=== PATIENT | female | born 1995 | race Two or more races ===

== ENCOUNTER 2023-01-29 20:08 | Inpatient (IN) ==
[2023-01-29] MEDS ORDERED: LIDOCAINE 1% LOCAL 20 ML VIAL INFIL PRN (20:48)
[2023-01-29] MEDS ORDERED: OXYTOCIN 30 UNITS/500 ML BAG IV PRN (20:48)
[2023-01-29] MEDS ORDERED: fentaNYL citrate PF 100 MCG/2 ML VIAL ONE (20:55)
[2023-01-29] MEDS ORDERED: SODIUM CHLORIDE 0.9% PF INJ 10 ML VIAL ONE (20:55)
[2023-01-29] MEDS ORDERED: ePHEDrine sulfate 50 MG/ML AMP ONE (20:55)
[2023-01-29] MEDS ORDERED: fentaNYL 2MCG/ML ROPIVACAINE 1.25MG/ML 100 ML BAG EPI ONE (20:56)
[2023-01-29] MEDS ORDERED: BUPIVACAINE 0.25% PF 30 ML VIAL ONE (20:56)
[2023-01-29] MEDS ORDERED: LIDOCAINE 2%/EPINEPHRINE 1:200,000 20 ML PF ONE (20:56)
[2023-01-29] MEDS: LACTATED RINGER'S 1,000 ML IV PRN ×2 (21:05→22:39)
[2023-01-29 21:46] LABS: Hemoglobin 13.4 g/dl (12.0-16.0); Mean Corpuscular Hemoglobin 30.7 pg (25.0-34.0); Mean Corpuscular Hgb Conc 35.3 g/dL (32.0-36.0); Mean Corpuscular Volume 87.2 fL (80.0-100.0); Mean Platelet Volume 11.3 fL (9.4-12.4); Platelet Count 235 K/uL (130-400); RDW Coefficient of Variation 12.4 % (11.5-14.5); RDW Standard Deviation 40.1 fL (36.4-46.3); Red Blood Count 4.36 M/uL (4.20-5.40); White Blood Count 9.09 K/ul (4.8-10.8)
[2023-01-29] MEDS ORDERED: NALOXONE HCL 0.4 MG/1 ML VIAL/CARP IV PRN (21:51)
[2023-01-29] MEDS ORDERED: fentaNYL 2MCG/ML ROPIVACAINE 1.25MG/ML 100 ML BAG EPI PRN (21:51)
[2023-01-29] MEDS ORDERED: diphenhydrAMINE 50 MG/ML VIAL IV PRN (21:51)
[2023-01-29] MEDS ORDERED: ONDANSETRON INJ 2 MG/ML 2 ML VIAL IV PRN (21:51)
[2023-01-29] MEDS ORDERED: ePHEDrine sulfate 50 MG/ML AMP IV PRN (21:51)
[2023-01-29] MEDS ORDERED: NALBUPHINE HCL INJ 10 MG/ML AMP IV PRN (21:51)
[2023-01-29] MEDS ORDERED: NALOXONE HCL 1 MG in SODIUM CHLORIDE 0.9% 1000ML 1,000 ML IV PRN (21:51)
--- NOTE | 2023-01-29 21:51 | Anesthesiology Consultation ---
Date of Service January 29, 2023 Assessment & Plan Chart Review Chart Review: Patient NOT seen in Pre Admission Testing and Acceptable Risk for Labor Epidural Consults Requested none ASA ASA2 Proposed Anesthesia Anesthesia Type: Labor Epidural Risk / Benefits Reviewed With: PT / POA / Parent / Guardian, Accepts Plan and Informed Consent Obtained History Height/Weight Height: 5 ft 4 in Weight: 78.925 kg Allergies Allergy/AdvReac Type Severity Reaction Status Date / Time No Known Allergies Allergy Unverified 01/29/23 20:44 Medications Home Medications Medication Instructions Recorded Confirmed Last Taken ferrous sulfate 325 mg (65 mg 325 mg PO DAILY 01/29/23 01/29/23 01/29/23 iron) tablet (iron) folic acid 1 mg tablet 1 mg PO DAILY 01/29/23 01/29/23 01/29/23 iron,carbonyl 65 mg-vitamin C 125 tab PO 01/29/23 01/29/23 mg tablet,delayed release (Vitron-C) vit no.133-ferrous 1 tab PO DAILY 01/29/23 01/29/23 01/28/23 fumarate 28 mg-folic acid 800 mcg tablet () Active Medications Generic Name Dose Route Start Last Admin Trade Name Freq PRN Reason Stop Dose Admin Lactated Ringer's 1,000 mls @ 150 mls/hr 01/29/23 20:48 01/29/23 21:05 Lr IV 01/31/23 20:47 999 mls/hr .[id number] PRN Administration L&D Protocol Protocol Exercise / Class Metabolic Activity II 4-5 Yardwork/Stairs/Walk up hill Past Anesthesia History No Hx of Anesthesia Complications and No Family Hx of Anesthesia Complications History of PONV No Hx of PONV and No Hx of Motion Sickness Social History Smoking Status: Never smoker Hx Alcohol Use: No Hx Substance Use: No Physical Exam Vital Signs Last Vital Signs Temp 37 C 01/29/23 20:27 Resp 18 01/29/23 20:27 ENMT Mouth: no dentition abnormality Thyromental Distance: > or= 3.5 Finger Breadths Mallampati Class: II Neck normal visual inspection Respiratory normal respiratory effort Auscultation: lungs clear to auscultation bilaterally Cardiovascular Rate/Rhythm: regular rate and regular rhythm Psychiatric Orientation: alert Testing Laboratory Results 01/29/23 21:18
--- NOTE | 2023-01-29 22:16 | History & Physical Report ---
Date of Service January 29, 2023 Assessment & Plan (1) Active labor at term: Plan: 27-year-old at 39 weeks and 2 days of gestation presenting in active pain with regular contractions and cervical change, Vital signs stable afebrile, heart rate reassuring, GBS negative, Plan to admit, monitor, labs, epidural for pain and anticipate . Admission and Anticipated Discharge Date Admission Date: January 29, 2023 History of Present Illness Primary Care Provider: NO PCP Patient is a 27-year-old G1, P0 at 39 weeks and 2 days of gestation who started to have contractions around 10 AM this morning, they were every 10 minutes and mild in intensity. They got more painful and closer after 7 PM. She denied leakage of fluid or vaginal bleeding. She reports good movements. She presented to labor and delivery in an a lot of pain and asking for epidural. Her cervix was 3 cm, 90% effaced and head was at -1 station. She was started on IV fluids, CBC was drawn and awaited for epidural for pain. While waiting I checked her cervix again and it was 4, 90%, -1 station with a bulging bag. heart rate has been category 1 with good variability, accelerations and no decelerations. Contraction pattern is regular every 2 to 3 minutes. Her [place] has been uncomplicated, GBS negative and she denies any medical problems. Allergies Allergy/AdvReac Type Severity Reaction Status Date / Time No Known Allergies Allergy Unverified 01/29/23 20:44 Home Medications Medication Instructions Recorded Confirmed Type ferrous sulfate 325 mg (65 mg 325 mg PO DAILY 01/29/23 01/29/23 History iron) tablet (iron) folic acid 1 mg tablet 1 mg PO DAILY 01/29/23 01/29/23 History iron,carbonyl 65 mg-vitamin C 125 tab PO 01/29/23 History mg tablet,delayed release (Vitron-C) vit no.133-ferrous 1 tab PO DAILY 01/29/23 01/29/23 History fumarate 28 mg-folic acid 800 mcg tablet () Patient History Social History Smoking Status: Never smoker Hx Alcohol Use: No Hx Substance Use: No Preferred Language: Bangladeshi Communication Ability: Effective Face Painter Required: Yes Beliefs That Will Affect Care: None marital status: Current Living Situation: Spouse Other Information That Helps Us Care for You: No Feels Safe at Home: Yes Safety Concerns: Feels Safe At This Time Assistive Devices: None SAFETY FIRE BOSS History Patient denies any history of STDs, no history of genital herpes, chlamydia, gonorrhea. Review of Systems as per Subjective / HPI Physical Exam Constitutional: WD/WN, vitals as above well developed, + acute distress (Labor pain) and + well hydrated Genitourinary: normal external appearance OB Exam Abdomen: + vertex Manual OB Exam: + cervical dilation 4 cm, + cervical effacement 90% and + station -1 (Bulging bag) OB Exam Monitor Tracing: + external uterine monitor used and + category I Results & Data Vital Signs (Past 12 Hours) Vital Signs Temp Resp 01/29/23 20:27 37 C 18
--- NOTE | 2023-01-30 00:26 | Obstetrical Progress Note ---
Date of Service January 30, 2023 Assessment & Plan Admission and Anticipated Discharge Date Admission Date: January 29, 2023 Subjective Patient is reevaluated. She is comfortable since she has received epidural. Her cervix was just checked by her nurse and it was 5 cm, bulgin bag FHR categ I I offered her ROM but declined. She desires to wait for an hour and see what happens and then decide. Continue to monitor closely. Results & Data Vital Signs (Past 12 Hours) Vital Signs Temp Resp 01/29/23 20:27 37 C 18
--- NOTE | 2023-01-30 01:22 | Obstetrical Progress Note ---
Date of Service January 30, 2023 Assessment & Plan Admission and Anticipated Discharge Date Admission Date: January 29, 2023 Subjective Patient is reevaluated She feels some of the contractions, pushed on button and got relief VE; 6/ 90%, large bulging bag, AROM;ed clear fluid, head at 0 station. FHR categ I Jimi: ctxs q 2-4 min Continue to monitor closely Results & Data Vital Signs (Past 12 Hours) Vital Signs Temp Pulse Resp BP Pulse Ox 01/30/23 01:17 84 100 01/30/23 01:14 83 116/60 01/30/23 01:12 85 100 01/30/23 01:07 76 100 01/30/23 01:02 85 100 01/30/23 00:59 82 104/53 L 01/30/23 00:57 85 100 01/30/23 00:52 79 100 01/30/23 00:47 76 100 01/30/23 00:42 76 100 01/30/23 00:43 77 106/54 L 01/30/23 00:37 79 99 01/30/23 00:32 75 100 01/29/23 20:27 37 C 18
--- NOTE | 2023-01-30 02:56 | Obstetrical Progress Note ---
Date of Service January 30, 2023 Assessment & Plan Admission and Anticipated Discharge Date Admission Date: January 29, 2023 Subjective Patient is comfortable, no pain nor pressure VE; 9/ 90%/ 0 to +1 with contraction FHR had been categ I except 2 variable decels earlier, recovered with posiiton change Contractions q 2-3 min Continue to monitor Results & Data Vital Signs (Past 12 Hours) Vital Signs Temp Pulse Resp BP Pulse Ox 01/30/23 02:52 76 100 01/30/23 02:47 72 99 01/30/23 02:42 78 106/60 99 01/30/23 02:37 94 H 100 01/30/23 02:32 66 98 01/30/23 02:29 68 105/51 L 01/30/23 02:27 64 98 01/30/23 02:22 68 98 01/30/23 02:17 69 98 01/30/23 02:14 67 105/54 L 01/30/23 02:12 72 98 01/30/23 02:07 71 98 01/30/23 02:02 79 99 01/30/23 01:57 76 97/54 L 99 01/30/23 01:52 67 98 01/30/23 01:47 69 98 01/30/23 01:44 72 105/52 L 01/30/23 01:42 74 99 01/30/23 01:37 72 98 01/30/23 01:32 74 99 01/30/23 01:29 78 107/52 L 01/30/23 01:27 74 99 01/30/23 01:15 36.9 C 01/30/23 01:22 74 99 01/30/23 01:17 84 100 01/30/23 01:14 83 116/60 01/30/23 01:12 85 100 01/30/23 01:07 76 100 01/30/23 01:02 85 100 01/30/23 00:59 82 104/53 L 01/30/23 00:57 85 100 01/30/23 00:52 79 100 01/30/23 00:47 76 100 01/30/23 00:42 76 100 01/30/23 00:43 77 106/54 L 01/30/23 00:37 79 99 01/30/23 00:32 75 100 01/29/23 20:27 37 C 18
[2023-01-30] MEDS: LACTATED RINGER'S 1,000 ML IV PRN (05:14)
[2023-01-30] MEDS ORDERED: OXYTOCIN 30 UNITS/500 ML BAG IV PRN ×2 (06:40→09:37)
--- NOTE | 2023-01-30 07:05 | Obstetrical Progress Note ---
Date of Service January 30, 2023 Assessment & Plan Admission and Anticipated Discharge Date Admission Date: January 29, 2023 Subjective Patient slept and labor down Now feels pressure with contractions, no pain or pressure in between VE; 10 / 100%/ +3 FHR categ I Contractions spaced out Plan to augment with low dose Oxytocin and start pushing Results & Data Vital Signs (Past 12 Hours) Vital Signs Temp Pulse Resp BP Pulse Ox 01/30/23 07:02 79 100 01/30/23 06:58 83 122/70 01/30/23 06:57 82 100 01/30/23 06:52 73 100 01/30/23 06:47 74 100 01/30/23 06:42 74 102/56 L 100 01/30/23 06:37 74 100 01/30/23 06:32 73 100 01/30/23 06:28 69 111/59 L 01/30/23 06:27 70 100 01/30/23 06:22 77 100 01/30/23 06:17 81 100 01/30/23 06:12 100 01/30/23 06:12 73 01/30/23 06:12 74 105/57 L 01/30/23 06:07 72 100 01/30/23 06:02 70 100 01/30/23 05:57 71 102/56 L 100 01/30/23 05:52 70 100 01/30/23 05:47 79 100 01/30/23 05:42 76 102/59 L 100 01/30/23 05:37 76 100 01/30/23 05:32 70 100 01/30/23 05:28 69 105/58 L 01/30/23 05:27 67 100 01/30/23 05:22 71 100 01/30/23 05:17 70 100 01/30/23 05:15 36.9 C 01/30/23 05:13 72 105/55 L 01/30/23 05:12 86 100 01/30/23 05:07 67 98 01/30/23 05:02 65 99 01/30/23 04:57 71 106/56 L 100 01/30/23 04:52 70 99 01/30/23 04:47 68 99 01/30/23 04:43 70 104/52 L 01/30/23 04:42 72 100 01/30/23 04:37 71 100 01/30/23 04:32 75 99 01/30/23 04:27 71 104/57 L 99 01/30/23 04:22 73 100 01/30/23 04:17 73 100 01/30/23 04:14 70 104/53 L 01/30/23 04:12 76 100 01/30/23 04:07 76 100 01/30/23 04:02 85 100 01/30/23 03:30 36.9 C 01/30/23 03:57 74 100 01/30/23 03:58 78 105/51 L 01/30/23 03:52 69 100 01/30/23 03:47 71 100 01/30/23 03:43 71 107/59 L 01/30/23 03:42 72 100 01/30/23 03:37 76 100 01/30/23 03:32 71 99 01/30/23 03:27 70 100 01/30/23 03:28 73 110/60 01/30/23 03:22 71 100 01/30/23 03:17 71 99 01/30/23 03:13 76 110/51 L 01/30/23 03:12 78 100 01/30/23 03:07 72 100 01/30/23 03:02 76 100 01/30/23 02:59 73 115/56 L 01/30/23 02:57 70 100 01/30/23 02:52 76 100 01/30/23 02:47 72 99 01/30/23 02:42 78 106/60 99 01/30/23 02:37 94 H 100 01/30/23 02:32 66 98 01/30/23 02:29 68 105/51 L 01/30/23 02:27 64 98 01/30/23 02:22 68 98 01/30/23 02:17 69 98 01/30/23 02:14 67 105/54 L 01/30/23 02:12 72 98 01/30/23 02:07 71 98 01/30/23 02:02 79 99 01/30/23 01:57 76 97/54 L 99 01/30/23 01:52 67 98 01/30/23 01:47 69 98 01/30/23 01:44 72 105/52 L 01/30/23 01:42 74 99 01/30/23 01:37 72 98 01/30/23 01:32 74 99 01/30/23 01:29 78 107/52 L 01/30/23 01:27 74 99 01/30/23 01:15 36.9 C 01/30/23 01:22 74 99 01/30/23 01:17 84 100 01/30/23 01:14 83 116/60 01/30/23 01:12 85 100 01/30/23 01:07 76 100 01/30/23 01:02 85 100 01/30/23 00:59 82 104/53 L 01/30/23 00:57 85 100 01/30/23 00:52 79 100 01/30/23 00:47 76 100 01/30/23 00:42 76 100 01/30/23 00:43 77 106/54 L 01/30/23 00:37 79 99 01/30/23 00:32 75 100 01/29/23 20:27 37 C 18
[2023-01-30] MEDS ORDERED: MINERAL OIL 30 ML UDC ONE (08:37)
[2023-01-30] MEDS ORDERED: ceFAZolin 2000MG 2,000 MG/15 ML SYR IV STA (09:15)
[2023-01-30] MEDS ORDERED: MEASLES, MUMPS & RUBELLA VIRUS VIAL SQ ONE (09:37)
[2023-01-30] MEDS ORDERED: METHYLERGONOVINE MALEATE 0.2 MG TAB PO STA (09:37)
[2023-01-30] MEDS ORDERED: DIPHTHERIA/TETANUS/PERTUSSIS 0.5mL SYR/VIAL (Age 7+yrs) IM ONE (09:37)
[2023-01-30] MEDS ORDERED: bisacodyL 10 MG SUPP PR PRN (09:37)
[2023-01-30] MEDS ORDERED: oxyCODONE/ACETAMINOPHEN 5mg/325mg TAB PO PRN (09:37)
[2023-01-30] MEDS ORDERED: ACETAMINOPHEN 325 MG TAB PO PRN (09:37)
[2023-01-30] MEDS ORDERED: BENZOCAINE 20% AER SPR 82.5 GM CAN EXT PRN (09:37)
[2023-01-30] MEDS ORDERED: HYDROCORTISONE ACETATE 25 MG SUPP PR PRN (09:37)
--- NOTE | 2023-01-30 09:37 | Delivery Summary ---
Vaginal Delivery Summary Date of Service January 30, 2023 Vaginal Delivery Summary Patient was found to be fully dilated and desire to push. She pushed for about an hour and delivered the head without difficulty. The shoulders were delivered with minimal traction and the baby was handed off to the mother. The mouth and nose were suctioned and the cord was clamped times and cut at 1 minute delay. Baby is moving and crying at that point. Then the vagina and perineum were checked for lacerations. There was a second- degree perineal/vaginal laceration. Rectal exam was done and good sphincter tone was noted. The gloves were changed. The muscles around the sphincter were held with Allis clamps and reapproximated with [id number] stitches x3 to support external sphincter. Then the rectal exam was repeated and again excellent sphincter tone was noted and no sutures were felt. The gloves were changed again and the rest of the perineal body muscles were reapproximated with 2-0 Vicryl in a running fashion. The vaginal mucosa was reapproximated with another 2-0 Vicryl in a running locked fashion and then skin in a subcuticular fashion. The placenta was found in the vagina, delivered spontaneously as intact and complete. The uterus was explored and retrieved some membranes and blood clots. It was empty and well contracted. There is repair had a minimal ooze around some of those were repaired with 2-0 Vicryl with [id number] stitches and then it was covered with Rod powder. And it was hemostatic. Mom and baby tolerated the procedure well. Sponge needle instrument count was correct x2. The baby was a viable female , Apgars 7/9 and weight is pendi ng. No complications happened and I was present during whole procedure.
--- NOTE | 2023-01-30 10:38 | Anesthesia Procedure Note ---
Date of Service January 30, 2023 Anesthesia Post Epidural Note Vital Signs Vital Signs: Temp Pulse Resp BP Pulse Ox 36.9 C 68 18 104/57 L 100 01/30/23 05:15 01/30/23 10:27 01/29/23 20:27 01/30/23 10:27 01/30/23 09:27 Notes Mental Status: alert / awake / arousable Nausea / Vomiting: adequately controlled Pain: adequately controlled Airway Patency, RR, SpO2: stable & adequate BP & HR: stable & adequate Hydration State: stable & adequate Neuraxial Anesthesia: was administered and sensory block is resolving Anesthetic Complications: no major complications apparent Epidural: Removed without complications and With tip intact
[2023-01-30] MEDS: IBUPROFEN 600 MG TAB PO PRN ×2 (13:17→20:58)
[2023-01-30] MEDS: METHYLERGONOVINE MALEATE 0.2 MG TAB PO SCH ×2 (16:57→20:58)
[2023-01-30] MEDS: DOCUSATE SODIUM 100 MG CAP PO SCH (20:58)
[2023-01-31] MEDS: METHYLERGONOVINE MALEATE 0.2 MG TAB PO SCH ×4 (00:01→12:25)
[2023-01-31] MEDS: IBUPROFEN 600 MG TAB PO PRN ×3 (00:59→19:12)
[2023-01-31 07:34] LABS: Hematocrit (blood only) 27.5 % (37.0-47.0); Hemoglobin 9.6 g/dl (12.0-16.0); Mean Corpuscular Hemoglobin 30.6 pg (25.0-34.0); Mean Corpuscular Hgb Conc 34.9 g/dL (32.0-36.0); Mean Corpuscular Volume 87.6 fL (80.0-100.0); Mean Platelet Volume 10.9 fL (9.4-12.4); Platelet Count 163 K/uL (130-400); RDW Coefficient of Variation 12.9 % (11.5-14.5); RDW Standard Deviation 41.5 fL (36.4-46.3); Red Blood Count 3.14 M/uL (4.20-5.40); White Blood Count 12.55 K/ul (4.8-10.8)
--- NOTE | 2023-01-31 09:02 | Obstetrical Progress Note ---
Date of Service January 31, 2023 Assessment & Plan (1) Normal course: PPD #1 pt doing well anticipate disch tomorrow Results & Data Vital Signs (Past 12 Hours) Vital Signs Temp Pulse Resp BP Pulse Ox O2 Del Method 01/31/23 03:49 36.6 C 75 18 99/65 L 98 Room Air 01/30/23 23:09 36.7 C 82 18 98/64 L 99 Room Air
[2023-01-31] MEDS: FERROUS SULFATE 325 MG TAB PO SCH (09:14)
[2023-01-31] MEDS: DOCUSATE SODIUM 100 MG CAP PO SCH ×2 (09:14→21:14)
[2023-01-31] MEDS: PRENATAL VITAMIN 1 TAB PO SCH (09:15)
[2023-01-31] MEDS ORDERED: bisacodyL 5 MG TABEC PO SCH (20:00)
[2023-02-01 06:38] LABS: Hematocrit (blood only) 24.9 % (37.0-47.0); Hemoglobin 8.6 g/dl (12.0-16.0)
[2023-02-01] MEDS: FERROUS SULFATE 325 MG TAB PO SCH (07:49)
[2023-02-01] MEDS: DOCUSATE SODIUM 100 MG CAP PO SCH (07:49)
[2023-02-01] MEDS: IBUPROFEN 600 MG TAB PO PRN ×2 (07:50→13:59)
[2023-02-01] MEDS: PRENATAL VITAMIN 1 TAB PO SCH (07:50)
--- NOTE | 2023-02-01 07:55 | Obstetrical Progress Note ---
Date of Service February 01, 2023 Assessment & Plan (1) Normal course: Continue normal care Discharge home today with follow-up in clinic in 3 and 6 weeks Discharge instructions given to patient Subjective Ambulation: ambulating normally Voiding: no voiding problems Passing Gas:: Yes Diet Tolerance:: regular diet Lochia:: Small Feeding Type:: breast feeding Current Pain Level(1-10): 1 Doing well, would like to go home today Physical Exam Constitutional WD/WN, vitals as above Cardiovascular RRR, no murmur, no edema Gastrointestinal (Abdomen) normal bowel sounds, soft, nontender, no hepatosplenomegaly Musculoskeletal no cyanosis or clubbing, extremities motor strength 5/5 Skin no rashes, warm and dry Results & Data Vital Signs (Past 12 Hours) Vital Signs Temp Pulse Resp BP Pulse Ox O2 Del Method 02/01/23 07:24 36.7 C 75 16 99/72 L 98 Room Air 01/31/23 23:50 36.8 C 88 18 98/59 L 98 Room Air Diagnostic Findings Laboratory Results WBC 12.55 K/ul (4.8-10.8) H 01/31/23 07:03 RBC 3.14 M/uL (4.20-5.40) L 01/31/23 07:03 Hgb 8.6 g/dl (12.0-16.0) L 02/01/23 05:58 Hct 24.9 % (37.0-47.0) L 02/01/23 05:58 MCV 87.6 fL (80.0-100.0) 01/31/23 07:03 MCH 30.6 pg (25.0-34.0) 01/31/23 07:03 MCHC 34.9 g/dL (32.0-36.0) 01/31/23 07:03 RDW Std Deviation 41.5 fL (36.4-46.3) 01/31/23 07:03 RDW Coeff of Lakesha 12.9 % (11.5-14.5) 01/31/23 07:03 Plt Count 163 K/uL (130-400) 01/31/23 07:03 MPV 10.9 fL (9.4-12.4) 01/31/23 07:03 SARS-CoV-2, RNA, NAAT NEGATIVE (NEGATIVE) 01/29/23 20:50
== END 2023-02-01 14:36 | disposition home or self-care (01) | DRG 807 ==
LOC: OPB 20:08 → 4S1 20:12 → 4E2 01-30 14:27